=== PATIENT | male | born 1945 | race Caucasian/White ===

== ENCOUNTER 2020-09-18 14:10 | Inpatient (IN) | payer OTHER ==
[~2020-09-18] VITALS: Ht 182.9 cm; Wt 114.3 kg
[~2020-09-18 14:10] MED LIST: ASPIRIN CHEWABL81 MG PO; CYMBALTA60 MG PO; GABAPENTIN800 MG PO; GLUCOPHAGE1000 MG PO; ISOSORBIDE MONO60 MG PO; LISINOPRIL10 MG PO; LOPRESSOR100 MG PO; MIRTAZAPINE45 MG PO; MOTION RELIEF25 MG PO; NOVOLOG100 UNIT/1 SC; OMEPRAZOLE20 MG PO; PRAVACHOL20 MG PO; SKELAXIN800 MG PO; TOUJEO MAX300 UNIT/1 SQ; VALERIAN ROOT1 GM MC; VISTARIL 50 MG50 MG PO
[2020-09-18 14:50] LABS: HEMOGLOBIN 13.2 gm/dl (14.0-17.5); RED BLOOD COUNT 4.94 M/UL (4.20-5.50); WHITE BLOOD COUNT 5.1 K/UL (4.5-11.0)
[2020-09-18 15:09] LABS: BUN/CREATININE RATIO 16 (0-10)
[2020-09-18] MEDS ORDERED: ZESTRIL5 MG PO (16:06)
[2020-09-18] MEDS ORDERED: SEROQUEL50 MG PO (16:08)
[2020-09-18] MEDS ORDERED: CRESTOR40 MG PO (16:09)
[2020-09-18] MEDS ORDERED: TRULICITY1.5 MG/0.5 SQ (16:13)
[2020-09-18] MEDS ORDERED: CELEBREX200 MG PO (16:15)
[2020-09-18] MEDS ORDERED: COLCRYS0.6 MG PO (16:16)
[2020-09-18] MEDS ORDERED: ZANAFLEX4 M1 PO (16:18)
[2020-09-19 02:15] LABS: HEMOGLOBIN 14.2 gm/dl (14.0-17.5); RED BLOOD COUNT 5.41 M/UL (4.20-5.50); WHITE BLOOD COUNT 5.4 K/UL (4.5-11.0)
[2020-09-19 02:50] LABS: BUN/CREATININE RATIO 18 (0-10)
[2020-09-20 06:39] LABS: HEMOGLOBIN 14.3 gm/dl (14.0-17.5); RED BLOOD COUNT 5.55 M/UL (4.20-5.50); WHITE BLOOD COUNT 4.9 K/UL (4.5-11.0)
[2020-09-20 07:01] LABS: BUN/CREATININE RATIO 15 (0-10)
[2020-09-21 02:16] LABS: HEMOGLOBIN 14.8 gm/dl (14.0-17.5); RED BLOOD COUNT 5.6 M/UL (4.20-5.50); WHITE BLOOD COUNT 5.3 K/UL (4.5-11.0)
[2020-09-21 02:37] LABS: BUN/CREATININE RATIO 17 (0-10)
[2020-09-21] MEDS ORDERED: LISINOPRIL10 MG PO (12:15)
== END 2020-09-21 16:01 | disposition home or self-care (01) | DRG 310 ==
LOC: ER1 14:10 → MED SURG 4 15:58 → CDU 15:58 → MED SURG 4 20:16
PROVIDERS: Emergency Medicine; Internal Medicine; Physician Assistant Medical; ADMIT Internal Medicine
PROC: B24BZZZ Ultrasonography of Heart with Aorta (ICD-10-PCS; principal; 2020-09-19)
DX: R00.1 Bradycardia, unspecified (principal); R55 Syncope and collapse; I25.10 Atherosclerotic heart disease of native coronary artery without angina pectoris; I10 Essential (primary) hypertension; E78.5 Hyperlipidemia, unspecified; E11.40 Type 2 diabetes mellitus with diabetic neuropathy, unspecified; H26.9 Unspecified cataract; E66.9 Obesity, unspecified; J44.9 Chronic obstructive pulmonary disease, unspecified; M10.9 Gout, unspecified; Z20.828 Contact with and (suspected) exposure to other viral communicable diseases; E11.649 Type 2 diabetes mellitus with hypoglycemia without coma; Z87.11 Personal history of peptic ulcer disease; Z90.49 Acquired absence of other specified parts of digestive tract; Z68.34 Body mass index [BMI] 34.0-34.9, adult; Z88.0 Allergy status to penicillin; Z95.1 Presence of aortocoronary bypass graft; I25.2 Old myocardial infarction; Z82.49 Family history of ischemic heart disease and other diseases of the circulatory system; Z83.3 Family history of diabetes mellitus; Z95.5 Presence of coronary angioplasty implant and graft; Z79.82 Long term (current) use of aspirin; Z79.4 Long term (current) use of insulin; Z79.899 Other long term (current) drug therapy
CPT/HCPCS: ECHO; 36415; 71045; 78452; 80048; 80053; 82550; 82553; 82962; 83735; 83874; 84100; 84439; 84443; 84484; 85025; 85610; 85730; 93005; 93017; 93306; 93880; 99285; A9502; G0378; J2785; J3475; U0002